=== PATIENT | male | born 1960 | race African-American/Black ===

== ENCOUNTER 2024-11-12 21:05 | Emergency (ER) | payer BC ==
[~2024-11-12] VITALS: Ht 188 cm; Wt 90.0 kg
[2024-11-12 21:11] VITALS: BP 139/82; PULSE 104; RESP 18; O2SAT 96
[2024-11-12 23:06] VITALS: TEMP 98.1
[2024-11-12] MEDS: ACETAMINOPHEN 325MG TABLET PO ONE (23:06)
[2024-11-12 23:17] LABS: BASOPHILS % 0.2 % (0.0-2.0); CHLORIDE 100 mEq/L (98-107); EOSINOPHILS % 0.1 % (0.0-5.0); HEMATOCRIT. 40.8 % (42.0-52.0); HEMOGLOBIN. 13.7 g/dL (14.0-18.0); LYMPHOCYTES % 24.4 % (20.0-50.0); MEAN CORPUSCULAR HEMOGLOBIN 29.5 pg (28.0-32.0); MEAN CORPUSCULAR HGB CONC 33.6 g/dL (31.0-37.0); MEAN CORPUSCULAR VOLUME 87.7 fL (80.0-94.0); MEAN PLATELET VOLUME 9.1 fl (7.4-10.4); MONOCYTES % 6.5 % (2.0-8.0); NEUTROPHILS % 68.8 % (40.0-76.0); PLATELET 207 x1000/uL (130-400); POTASSIUM 4.2 mEq/L (3.5-5.1); RED BLOOD CELL COUNT 4.65 mill/uL (4.7-6.1); RED CELL DISTRIBUTION WIDTH 15.2 % (11.6-14.6); SODIUM 136 mEq/L (136-145); WHITE BLOOD COUNT 8.7 x1000/uL (4.5-11.0)
[2024-11-12 23:18] LABS: CARBON DIOXIDE 27 mEq/L (21-32)
[2024-11-12 23:19] LABS: CALCIUM 9.1 mg/dL (8.7-10.4)
[2024-11-12 23:24] LABS: GLUCOSE 154 mg/dL (70-105); UREA NITROGEN BLOOD 28 mg/dL (9-23)
[2024-11-12 23:37] LABS: TROPONIN I HIGH SENSITIVITY < 4 ng/L (3.0-53)
[2024-11-12] MEDS ORDERED: LIDO700A15 TP (23:51)
[2024-11-12] MEDS ORDERED: NAPR-1176 MT (23:51)
== END 2024-11-13 00:04 | disposition home or self-care (01) ==
LOC: ER 21:05
DX: M25.562 Pain in left knee (principal); R06.02 Shortness of breath; I50.9 Heart failure, unspecified; R07.89 Other chest pain; Z79.1 Long term (current) use of non-steroidal anti-inflammatories (NSAID)
CPT/HCPCS: 36415; 71045; 73562; 80048; 83880; 84484; 85025; 93971; 99284

== ENCOUNTER 2024-11-17 10:46 | Emergency (ER) | payer BC ==
[~2024-11-17] VITALS: Ht 182.9 cm; Wt 91.0 kg
[~2024-11-17 10:46] MED LIST: LIDO700A15 TP; NAPR-1176 MT
[2024-11-17 10:51] VITALS: O2SAT 99
[2024-11-17 10:54] VITALS: BP 145/89; PULSE 98; RESP 18; TEMP 98.4; O2SAT 96
== END 2024-11-17 14:22 | disposition home or self-care (01) ==
LOC: ER 10:46
DX: M25.562 Pain in left knee (principal); I50.9 Heart failure, unspecified; E78.00 Pure hypercholesterolemia, unspecified; Z98.890 Other specified postprocedural states
CPT/HCPCS: 99281

== ENCOUNTER 2025-01-29 23:22 | Emergency (ER) | payer BC, MEDICAID ==
[~2025-01-29] VITALS: Ht 188 cm; Wt 100.0 kg
[2025-01-29 23:31] VITALS: TEMP 36.6; O2SAT 99
[2025-01-29] MEDS: HYDROCODONE/ACETAMINOPHEN 5/325MG TABLET PO ONE (23:50)
[2025-01-30] MEDS ORDERED: LIDO1ADH7 TP (03:02)
[2025-01-30 03:22] VITALS: BP 121/89; PULSE 79; RESP 15; O2SAT 97
== END 2025-01-30 03:23 | disposition home or self-care (01) ==
LOC: ER 23:44
DX: R07.89 Other chest pain (principal); Z79.1 Long term (current) use of non-steroidal anti-inflammatories (NSAID); Z95.1 Presence of aortocoronary bypass graft; Z79.01 Long term (current) use of anticoagulants; Z79.899 Other long term (current) drug therapy; W01.0XXA Fall on same level from slipping, tripping and stumbling without subsequent striking against object, initial encounter; Y93.89 Activity, other specified; Y92.89 Other specified places as the place of occurrence of the external cause; Y99.8 Other external cause status
CPT/HCPCS: 71101; 99284